=== PATIENT | female | born 1995 | race African-American/Black ===

== ENCOUNTER 2022-10-11 13:14 | Outpatient (RCR) | payer BC, SELFPAY | END 2023-01-09 23:59 | disposition home or self-care (01) | LOC: ANHLAB 13:14 | PROVIDERS: PCP Family Medicine; Visit Provider Advanced Practice Midwife | DX: N91.2 Amenorrhea, unspecified (principal) | CPT/HCPCS: 36415; 84702 ==

== ENCOUNTER 2023-03-16 11:43 | Observation (INO) | payer OTHER, SELFPAY ==
[2023-03-16 12:36] VITALS: BP 112/64; PULSE 97
[2023-03-16 12:40] VITALS: BP 112/64; PULSE 97; RESP 16; TEMP 36.7
--- NOTE | 2023-03-16 12:40 | OBADM ---
This patient, Ina Torres, admitted to the OB room 113 for observation. Patient/family oriented to hospital policies and general routines including ID bracelet, bed and alarms, visiting hours, pain management, procedures, bathroom and other care routines, personal items, smoking policy, room service/diet, and visiting hours. Patient/Family are encouraged to report perceived risks to care and to ask questions if they do not understand what they are told or what they should do.
[2023-03-16 13:00] VITALS: BP 115/67; PULSE 93
[2023-03-16 13:30] VITALS: BP 110/72; PULSE 96
[2023-03-16] MEDS: DEXTROSE 5%/LACTATED RINGERS 1,000 ML 999 ML IV CONT (13:37)
[2023-03-16] MEDS: ONDANSETRON INJ 4 MG/2 ML VIAL IV PUSH (13:39)
[2023-03-16 14:07] LABS: Alanine Aminotransferase 16 U/L (6-35); Alkaline Phosphatase 104 U/L (38-126); Anion Gap 8 mmol/L (8-16); Aspartate Amino Transferase 29 U/L (14-36); Bilirubin,Total 0.9 mg/dL (0.2-1.3); Blood Urea Nitrogen 8 mg/dL (7-17); Carbon Dioxide 21 mmol/L (22-30); Chloride 106 mmol/L (98-107); Estimated Glomerular Filt Rate > 60; Glucose 84 mg/dL (65-110); Potassium 3.5 mmol/L (3.4-5.0); Sodium 135 mmol/L (137-145)
[2023-03-16] MEDS: ACETAMINOPHEN 500 MG TABLET 1000 MG PO (14:16)
--- NOTE | 2023-03-19 09:23 | PM.OBTRLD ---
OB - Triage/Final Diagnosis Visit Information Comments/Additional reasons for admission: I have assessed the risk for this patient, Ina Torres, and determined that she would benefit from observation care. Evaluation Laboratory results: Laboratory Tests 03/16/23 13:46 Sodium 135 L Potassium 3.5 Chloride 106 Carbon Dioxide 21 L Anion Gap 8 BUN 8 Creatinine 0.70 Estim Creat Clear Calc Not Reportable Estimated GFR > 60 Glucose 84 Calcium 9.0 Total Bilirubin 0.9 AST 29 ALT 16 Alkaline Phosphatase 104 Total Protein 8.0 Albumin 4.0 Final Diagnosis (1) Nausea and vomiting during : Code(s): O21.9 - Vomiting of , unspecified Status: Acute
== END 2023-03-16 15:28 | disposition home or self-care (01) ==
PROVIDERS: Admitting Provider Obstetrics & Gynecology; PCP Family Medicine; Visit Provider Obstetrics & Gynecology
DX: O21.9 Vomiting of pregnancy, unspecified (principal); Z3A.29 29 weeks gestation of pregnancy
CPT/HCPCS: 36415; 80053; 96361; 96374; A9270; G0378; G0379; J2405; J7121

== ENCOUNTER 2023-05-24 16:08 | Outpatient (RCR) | payer OTHER, SELFPAY ==
--- NOTE | ~2023-05-24 | US_ITS ---
EXAMINATION: US OB BPP wo non-stress DATE: 05/24/2023 17:28 INDICATION: Decreased movements TECHNIQUE: Real-time pelvic ultrasound was performed. The interpreting radiologist was not present fo r the study. COMPARISON: None. FINDINGS: There is a single living fetus in vertex presentation. The placenta is anterior. heart rate is 128 beats per minute (bpm). Amniotic fluid volume is subjectively normal with normal deep vertical p ocket measurement of 4.2 cm. Biophysical profile performed by the technologist: breathing (30 sec sustained breathing in 30 minutes): 2 out of 2 movement (3 gross body movements in 30 minutes): 2 out of 2 tone (one episode of xuwfosm-ejxkwckay-eozbaxd limb movement): 2 out of 2 Amniotic fluid pocket (2 cm): 2 out of 2 Total score: 8 out of 8 IMPRESSION: 1. Single living fetus in vertex presentation with heart rate of 128 bpm. 2. Biophysical profile 8 out of 8. Reviewed, dictated and finalized at location A. [facility]
[2023-05-24 16:58] VITALS: BP 108/60; PULSE 76
== END 2023-08-22 23:59 | disposition home or self-care (01) ==
LOC: ANHOBOP 16:08
PROVIDERS: PCP Family Medicine; Visit Provider Advanced Practice Midwife
DX: O36.8130 Decreased fetal movements, third trimester, not applicable or unspecified (principal); Z3A.39 39 weeks gestation of pregnancy
CPT/HCPCS: 59025; 76819

== ENCOUNTER 2023-06-05 17:47 | Inpatient (IN) | payer OTHER, SELFPAY ==
[2023-06-05] VITALS (84 sets, daily range): BP systolic 93–128; BP diastolic 36–94; PULSE 69–138; TEMP 36.6; O2SAT 96–100; BMI 25.2
--- NOTE | 2023-06-05 18:31 | LDADM ---
This patient, Ina Torres, was admitted to Labor/Delivery/Recovery 105 on 06/05/23 at 17:47. Plans for labor, pain management and were discussed with patient. Patient/family oriented to hospital policies and general routines including ID bracelet, bed and alarms, visiting hours, pain management, procedures, bathroom and other care routines, personal items, smoking policy, room service/diet and guest tray routines, security routines, and visiting hours. Patient/Family are encouraged to report perceived risks to care and to ask questions if they do not understand what they are told or what they should do. See OBIX for further documentation.
--- NOTE | 2023-06-05 18:33 | WPDANESEPP ---
Anes - Eval Pre Procedure Procedure: labor epidural Date/Time: 06/05/23 18:33 Pre Op Diagnosis: iol Patient Data Age: 27 Gender: F Height: Weight: Allergies Allergy/AdvReac Type Severity Reaction Status Date / Time No Known Allergies Allergy Verified 05/04/23 12:33 Home Medications Medication Instructions Recorded Confirmed Type ondansetron 4 mg disintegrating 4 mg PO Q6H PRN Nausea And 03/16/23 05/04/23 Rx tablet Vomiting #15 tabs vit no.95-ferrous 1 tablet PO DAILY 03/16/23 05/04/23 History fumarate 28 mg-folic acid 800 mcg tablet () Patient hx anesthesia problems: none Family hx anesthesia problems: none Results Review: All pre-operative results and documents have been reviewed as part of the pre-operative evaluation. [facility] Past Medical History Medical History History of chlamydia Family History Family History Mother Diabetes mellitus Social History Social History Smoking status: Never smoker Second hand tobacco smoke exposure: No Alcohol intake: never Substance use: never Lack of Transportation: No Lack of Food: Never True Current Housing: I Have Housing Concerned About Future Housing: No Difficulty Paying Gas/Electric Bills: No Difficulty Paying for Meds: No Currently Unemployed: No Difficulty w/ Childcare or Family Care: No Spiritual care concerns: No Exam Day of Procedure 06/05/23 18:33 Patient weight: normal Heart: regular rate and rhythm Lungs: normal air movement Airway: Mallampati scale Neurological: alert and oriented
[2023-06-05 18:36] LABS: Basophils Absolute Auto 0.1 K/mm3 (0.0-0.1); Basophils Percent Auto 0.6 % (0.2-1.2); Eosinophils Absolute Auto 0.1 K/mm3 (0-0.3); Eosinophils Percent Auto 0.5 % (0-4.4); Hemoglobin 12.5 g/dL (12.0-15.0); Immature Granulocyte Absolute 0.59 K/mm3 (0.00-0.031); Lymphocytes Absolute Auto 2.36 K/mm3 (0.9-3.2); Lymphocytes Percent Auto 15.9 % (18.3-44.2); Mean Corpuscular HGB Conc 33.8 g/dl (32-36); Mean Corpuscular Hemoglobin 30.3 pg (26-34); Mean Corpuscular Volume 89.8 fl (80-100); Mean Platelet Volume 12.5 fl (7.4-10.4); Monocytes Absolute Auto 0.9 K/mm3 (0.1-0.6); Monocytes Percent Auto 6.1 % (2.6-8.5); Neutrophils Absolute Auto 10.8 K/mm3 (1.3-6.7); Neutrophils Percent Auto 72.9 % (45.5-73.1); Platelet Count Result 160 k/mm3 (150-375); Red Blood Count 4.12 M/mm3 (4.2-5.4); Red Cell Distribution Width 13.2 % (11.5-14.5); White Blood Count 14.8 K/mm3 (4.5-10.0)
[2023-06-05] MEDS: LACTATED RINGERS 1,000 ML 125 ML IV CONT ×4 (18:48→23:31)
--- NOTE | 2023-06-05 19:21 | WPDOBADMIT ---
Obstetrics - Admit Note Admission Note: record reviewed. No pertinent additions to the history and/or any subsequent changes in the physical findings that are not consistent with the expected course of the were found. Additions to the history and/or subsequent changes in the physical findings follow. Pt 40.6 weeks gestation, in early labor, plan augmentation
--- NOTE | 2023-06-05 19:57 | PM.OBPNLAB ---
Pain Control Date/time seen: 06/05/23 19:57 Comments: comfortable with epidural, SVE /-1, AROM. large amount of clear, odorless fluid, IUPC placed, anticipate vaginal delivery
[2023-06-05] MEDS: OXYTOCIN 30 UNITS/NS 500 ML 30 UNITS/500 ML BAG 6 UNITS IV CONT (21:04)
[2023-06-06] VITALS (184 sets, daily range): BP systolic 86–135; BP diastolic 42–102; PULSE 40–175; RESP 16; TEMP 36.6–37.2; O2SAT 64–100
[2023-06-06] MEDS: ONDANSETRON INJ 4 MG/2 ML VIAL IV PUSH (01:05)
[2023-06-06] MEDS: diphenhydrAMINE HCl INJ 50 MG/ML VIAL 25 MG IV PUSH (04:34)
[2023-06-06] MEDS: LACTATED RINGERS 1,000 ML 125 ML IV CONT (05:07)
[2023-06-06] MEDS: DEXTROSE 5%/LACTATED RINGERS 1,000 ML 999 ML IV CONT (07:36)
[2023-06-06 10:36] LABS: Rapid Plasma Reagin Non-Reactive (NonReactive)
--- NOTE | 2023-06-06 11:27 | PM.OBPRVD ---
OB - Vaginal Delivery Note Procedure Delivery date: 06/06/23 Delivery augmentation: Rupture of Membranes and Pitocin Delivery monitor: External FHT and Internal Uterine Route of delivery: Episiotomy description: None Laceration Description: None Specimen: No Quantitative Blood Loss (ml): 200 Anesthesia type: Epidural Disposition: Floor Baby Date of : 06/06/23 Time of : 11:15 Weeks of gestation at delivery: 41 gender: Male Weight (pounds): 7 Weight (ounces): 15 presentation: vertex position: Left Occiput Transverse Placenta delivery description: Spontaneous Cord Vessel Description: 3 Vessels score one minute: 5 score five minutes: 9 Narrative: mother and baby in stable condition
[2023-06-06] MEDS: OXYTOCIN 30 UNITS/NS 500 ML 30 UNITS/500 ML BAG 125 UNITS IV CONT (11:52)
[2023-06-06] MEDS: ACETAMINOPHEN 325 MG TABLET 650 MG PO ×2 (12:38→19:07)
[2023-06-06] MEDS: WITCH HAZEL 40 PADS 1 PAD TOPICAL (13:15)
[2023-06-06] MEDS: BENZOCAINE 20% AER SPR (*SP) 56 GM CAN 1 SPRAY TOPICAL (13:15)
[2023-06-06] MEDS: IBUPROFEN 600 MG TABLET PO (14:14)
[2023-06-07 04:30] VITALS: BP 96/55; PULSE 78; RESP 18; O2SAT 100
[2023-06-07 05:02] LABS: Hematocrit 31.8 % (37.0-47.0); Hemoglobin 10.9 g/dL (12.0-15.0)
--- NOTE | 2023-06-07 07:57 | P.PNOB_ITS ---
OB - PN: Subj Subjective Date/time seen: 06/07/23 07:57 Interval history: pp day 1 no complaints OB - PN: Obj Data Labs 06/07/23 03:48 Labs: Laboratory Results - last 24 hr 06/05/23 06/07/23 18:29 03:48 Hgb 10.9 L Hct 31.8 L RPR Non-reactive OB - PN A/P Plan day: 1 Plan: routine care Time Spent With Patient Time: Total time spent is greater than 50% in coordination of care (as documented) at patient's floor/unit and/or counseling patient: Review of Systems Review of Systems: All systems reviewed & are unremarkable except as noted in HPI and below Exam 2 Const: General: cooperative Resp: Effort & Inspection: normal respiratory effort Cardio: Rate: regular rate Skin: General skin exam: normal color Neuro: General: oriented to person
[2023-06-07 08:33] VITALS: BP 103/64; PULSE 95; RESP 18; TEMP 36.7; O2SAT 97
[2023-06-07] MEDS: IBUPROFEN 600 MG TABLET PO ×2 (09:00→15:35)
[2023-06-07] MEDS: DOCUSATE SODIUM 100 MG CAPSULE PO (09:01)
[2023-06-07] MEDS: MULTIVIT/MIN/PREN/FOL AC/IRON TABLET 1 TAB PO (09:02)
[2023-06-07] MEDS: WITCH HAZEL 40 PADS 1 PAD TOPICAL (09:03)
[2023-06-07] MEDS: ACETAMINOPHEN 325 MG TABLET 650 MG PO ×2 (12:49→19:22)
--- NOTE | 2023-06-07 15:22 | PC.NURSE ---
[id number] Introductions were made, then consulted with patient to assess needs related to . Mother led the conversation with her?plans to feed?her infant, the?experience so far, and is demonstrating an effective latch to the right breast using cross cradle positioning. Education given to the parents of how to visualize the suckling (with good rocking jaw motion), swallows (dropping of the lower jaw) and how to listen for drinking at the breast (the ka sound) which is demonstrating. Infant was able to maintain latch without pain to mother protecting the nipple with optimal positioning and latching. Reviewed comfort measures of healing with a warm, wet washcloth to rinse breast, then leave open to air-dry, good handwashing when or touching the breast/nipples to prevent infection. Mother voiced understanding of skin to skin, stimulating with massage touch, responsive feedings, hand expressed colostrum, talking to infant to encourage if it has been 2 -2.5 hours since the start of the last , to call if does not latch, or if there is discomfort with . Reviewed with mother ways to detach infant from the breast to protect her nipple with her long fingernails. Resources used for education were facilitated with the visual educational handouts/ tool/mom and baby guide. Inpatient/outpatient resources provided with feeding sheet, name written on the communication board, and the mom/baby guide. Parents voiced understanding of information, demonstrated learning and will call if there is a request for assistance. Reported to the Primary RN. [phone] Consulted with patient to assess needs related to after a request. Discussed with mother her successes, concerns and any questions she has. We reviewed working with the , supporting breast, protecting her nipples with an optimal deep latch, good positioning, and good hand washing. Encouraged understanding the benefits of skin to skin, responding to feeding cues, frequencies of feeding 8-12 times in 24 hours (approximately 2-3 hours), duration of feedings, milk production, intake/output feeding sheet and signs of adequate intake encouraging swallowing at the breast. Reviewed positioning and alignment, supporting breast, off-centered (asymmetrical latch) and leading with the chin with big, open, wide gape. Infant latched optimally to the left breast in football position, then right using cross cradle positioning. Education given to the mother of how to visualize the suckling (with good rocking jaw motion) swallows (dropping of the lower jaw) and how to listen for drinking at the breast (the ka sound) which demonstrated well. The infant was able to maintain latch without discomfort to mother. Nipple care reviewed with optimal latch, good positioning and using clean hands when touching her breast. Resources used to facilitate learning were used from the visual handouts, feeding sheet, mom and baby guide. Mother voiced understanding of the education shared, to call for assistance if the does not latch or if there is discomfort with . Reported to the Primary RN.
[2023-06-07 19:25] VITALS: BP 117/59; PULSE 84; RESP 16; TEMP 36.5
--- NOTE | 2023-06-08 07:15 | PC.NURSE ---
Pt introductions made and plan of care discussed per post , pain management, breast feeding, daily care activities and pending discharge to home. PT and spouse both received such instructions and no barriers to learning identified at this time. PT received such instructions this shift via one to one discussion, mom baby care guide and demonstrations. PT verbalized understanding of such care.
--- NOTE | 2023-06-08 08:41 | PM.OBPNVD ---
OB - PN: Subj Subjective Date/time seen: 06/08/23 08:41 Interval history: pp day 2 no complaints OB - PN: Obj Data Labs 06/07/23 03:48 OB - PN A/P Plan day: 2 Plan: routine care and discharge home Time Spent With Patient Time: Total time spent is greater than 50% in coordination of care (as documented) at patient's floor/unit and/or counseling patient: Review of Systems Review of Systems: All systems reviewed & are unremarkable except as noted in HPI and below Exam Const: General: cooperative and healthy appearing Resp: Effort & Inspection: normal respiratory effort Cardio: Rate: regular rate Extrem: Right lower extremity: normal to inspection Left lower extremity: normal to inspection
--- NOTE | 2023-06-08 08:42 | PM.OBDSVD ---
DS: Admitting Diagnosis Discharge Date 06/08/23 Admitting Diagnosis Labor DS: Discharge Diagnosis Discharge Diagnosis (1) Vaginal delivery: Code(s): O80 - Encounter for full-term uncomplicated delivery Status: Acute OB - DS: Summary OB Procedures : None OB Procedures Intrapartum: Spontaneous Vag Delivery OB Procedures: : None Peripartum Data Laceration Description: None Episiotomy description: None Time Spent with Patient Time attestation: Total time spent providing and/or coordinating discharge services: Discharge Plan Discharge Attending physician on discharge: Chad Germain Discharging Clinician: Cathy Lyons Patient Disposition: Home, Self-Care Activity: pelvic rest Diet: regular Discharge Instructions: Education: Mom and Baby Guide Given to: Mother Follow-Up: Call your delivering provider's office for an appointment to be seen in: 6 Weeks Mom and baby should come to the [facility] for the follow-up appointment. Appointment Date/Time: June 10, 2023 at 10:00 am What to expect at your follow-up visit: Blood Pressure Check Call [phone] if you are unable to keep your appointment time. BREAST CARE: * Wear a snug supportive bra. * For engorgement discomfort: Breast Feeding: * Apply warm moist washcloths * Express milk as needed to relieve engorgement * Wear loose clothing Bottle Feeding: * May apply ice packs * For sore nipples: * Identify correct latch-on * Apply warm moist washcloths before and after nursing * Air dry nipples after nursing * May apply Lansinoh cream to nipples PERINEAL CARE: * Until bleeding stops, use your felipa bottle after urinating * Change your pad frequently throughout the day * You may take sitz baths several times a day (fill your bathtub with warm water and soak for 20 minutes.) Do NOT bathe in the water * No tub baths until seen by your physician - You may shower ACTIVITY: * Rest as much as possible. * Do not exercise or lift anything heavier than your baby (such as laundry or other children.) * Avoid stairs or driving as much as possible. * Do not put anything into the vagina. No douching, tampons, or sexual activity until seen by physician. NOTIFY PHYSICIAN IF YOU HAVE ANY QUESTIONS OR IF ANY OF THE FOLLOWING SYMPTOMS OCCUR: * If your perineum becomes red, swollen, or more painful than what you have experienced in the hospital. * If your vaginal bleeding becomes foul smelling. * If your vaginal bleeding becomes more heavy than a period or if your bleeding changes from pink to bright red. However, you may pass an occasional walnut-sized clot once or twice for the first week . * If you experience a sharp, shooting pain in you calves. * If you discover a hard, reddened area on your breast or if you experience flu-like symptoms. * If you have a fever if 100.4 or greater DIET: * Eat regular, well-balanced meals. * Drink plenty of fluids daily. If , drink to thirst. Patient Instructions: Antibiotic Form Stand Alone Forms: General Discharge Information Follow-up/Referrals: Cathy Lyons CNM [Certified Nurse Corporate Webmaster] - 4 Weeks Discharge Medications: New ibuprofen 600 mg Tablet 600 mg PO Q6H PRN (Reason: Cramping) Qty: 30 0RF Continued PNV cmb#95-ferrous fumarate-FA [] 28 mg iron- 800 mcg Tablet 1 tablet PO DAILY Discontinued ondansetron 4 mg Tablet,Disintegrating 4 mg PO Q6H PRN (Reason: Nausea And Vomiting) Qty: 15 0RF Date of admission: 06/05/23 17:47 Primary Care Provider: Jose Flores Admitting Provider: Chad Germain Attending physician on admission: Cathy Lyons Condition: Stable
[2023-06-08] MEDS: TETANUS,DIPHTHERIA,AC PERTUSSIS ADULT (0.5 ML) BOOSTRIX IM (09:52)
[2023-06-08] MEDS: DOCUSATE SODIUM 100 MG CAPSULE PO (10:40)
[2023-06-08] MEDS: IBUPROFEN 600 MG TABLET PO (10:40)
[2023-06-08] MEDS: MULTIVIT/MIN/PREN/FOL AC/IRON TABLET 1 TAB PO (10:41)
[2023-06-08] MEDS: LANOLIN (LANSINOH) 7.5 GM CREAM 1 APPLIC TOPICAL (10:41)
[2023-06-08 10:45] VITALS: BP 94/71; PULSE 84; PULSE 88; RESP 16; RESP 18; TEMP 36.6; O2SAT 97
--- NOTE | 2023-06-08 11:30 | PC.NURSE ---
Mom received discharge instructions per protocol and verbalized understanding of such care. Patient was given the opportunity to view the discharge video Mother & Baby Care, The First Two Weeks and to ask questions. Patient declined viewing the video and has been given the mother/baby guide for home reference.
--- NOTE | 2023-06-08 12:45 | PC.NURSE ---
PT discharged to home via wheelchair accompanied by fob, infant and family. PT taken to waiting car. Follow up appts confirmed
[2023-06-10 10:38] VITALS: BP 115/75; PULSE 71; RESP 18; TEMP 37.1; O2SAT 100
== END 2023-06-08 12:45 | disposition home or self-care (01) | DRG 807 ==
LOC: ANHOB2 06-08 08:43 → ANHLDR 06-10 13:27 → ANHOB2 06-10 13:27
PROVIDERS: Advanced Practice Midwife; Admitting Provider Obstetrics & Gynecology; PCP Family Medicine; Visit Provider Obstetrics & Gynecology
DX: O80 Encounter for full-term uncomplicated delivery (principal); Z37.0 Single live birth; Z3A.41 41 weeks gestation of pregnancy
CPT/HCPCS: 36415; 85014; 85018; 85025; 86592; 86850; 86900; 86901; 90715; A9270; J1200; J2405; J2590; J2795; J7120; J7121